=== PATIENT | male | born 1970 | race Caucasian/White ===

== ENCOUNTER 2023-10-18 22:11 | Emergency (ER) | payer OTHER, SELFPAY ==
[~2023-10-18] VITALS: Ht 160 cm; Wt 85.3 kg
[2023-10-18 22:12] VITALS: BP 160/112; TEMP 99.4; O2SAT 97
[2023-10-18] MEDS ORDERED: MIDAZOLAM INJ 2MG/2ML VIAL IV ONE (23:10)
[2023-10-18] MEDS: MIDAZOLAM INJ 2MG/2ML VIAL IV STA (23:30)
[2023-10-18] MEDS: fentaNYL 100 MCG/2 ML INJECTION IV ONE ×2 (23:35→23:44)
[2023-10-19] MEDS ORDERED: PERC5TAB12 PO (00:53)
[2023-10-19] MEDS ORDERED: NORV5TAB PO (00:55)
[2023-10-19 01:32] VITALS: BP 182/93
[2023-10-19] MEDS: OXYCODONE/APAP 5MG/325MG(HOME DOSE PACK) PO ONE (01:33)
[2023-10-19] MEDS: PERCOCET 5MG/325MG TAB PO ONE (02:06)
[2023-10-22] MEDS ORDERED: LISI10TA22 PO (11:25)
[2023-10-22] MEDS ORDERED: NORV5TAB PO (11:25)
[2023-10-22] MEDS ORDERED: LISI40TA4 PO (11:25)
[2023-10-22] MEDS ORDERED: FLOM0.4C39 PO (11:25)
[2023-10-22] MEDS ORDERED: PERCOCET PO (11:27)
== END 2023-10-19 02:08 | disposition home or self-care (01) ==
LOC: M ED 22:11
DX: S82.854A Nondisplaced trimalleolar fracture of right lower leg, initial encounter for closed fracture (principal); Y92.410 Unspecified street and highway as the place of occurrence of the external cause; Y93.9 Activity, unspecified; Y99.9 Unspecified external cause status; Y04.8XXA Assault by other bodily force, initial encounter; M25.512 Pain in left shoulder; I10 Essential (primary) hypertension; Z79.899 Other long term (current) drug therapy
CPT/HCPCS: 73030; 73610; 96374; 96375; 99282; J2250; J3010

== ENCOUNTER → 2023-10-22 | Outpatient (CLI) | payer SELFPAY ==
[~2023-10-22] MED LIST: FLOM0.4C39 PO; LISI10TA22 PO; LISI40TA4 PO; NORV5TAB PO; PERC5TAB12 PO; PERCOCET PO
== END ==
LOC: M RAD 13:44
PROVIDERS: ATTEND Physician Assistant
DX: S82.841A Displaced bimalleolar fracture of right lower leg, initial encounter for closed fracture (principal); W18.30XA Fall on same level, unspecified, initial encounter; Y92.009 Unspecified place in unspecified non-institutional (private) residence as the place of occurrence of the external cause

== ENCOUNTER 2023-10-23 15:03 | Inpatient (IN) | payer SELFPAY ==
[~2023-10-23] VITALS: Ht 160 cm; Wt 60.0 kg
[2023-10-23 08:00] VITALS: BP 157/98
[2023-10-23] MEDS: MULTIVITAMINS/MINERALS THERAP 1 TAB PO SCH (09:00)
[2023-10-23 16:06] LABS: BLOOD UREA NITROGEN 14 MG/DL (9-23); CALCIUM LEVEL 9.1 MG/DL (8.5-10.1); CARBON DIOXIDE LEVEL 26 MMOL/L (20-31); CHLORIDE LEVEL 104 MMOL/L (98-107); CREATININE FOR GFR 0.85 MG/DL (0.70-1.30); GLOMERULAR FILTRATION RATE > 60.0 (>56); GLUCOSE, FASTING 106 MG/DL (60-100); POTASSIUM SERUM 4.4 MMOL/L (3.5-5.1); SODIUM LEVEL 138 MMOL/L (136-145)
[2023-10-23] MEDS ORDERED: CAPTOpril 6.25 MG PER 1/2 TABLET PO SCH (17:15)
[2023-10-23] MEDS ORDERED: KETOROLAC 30 MG/ML 1ML VIAL IV PRN (17:15)
[2023-10-23] MEDS ORDERED: ACETAMINOPHEN TAB 650MG DOSE (2X325MG) PO PRN (17:15)
[2023-10-23] MEDS ORDERED: MOM 30ML SUSPENSION UDC PO PRN (17:15)
[2023-10-23] MEDS: KETOROLAC 30 MG/ML 1ML VIAL IV SCH (18:02)
[2023-10-23] MEDS: CAPTOpril 12.5 MG TAB PO SCH (18:03)
[2023-10-23 18:26] LABS: HEMATOCRIT 41.8 % (42.0-52.0); HEMOGLOBIN 14.1 g/dl (13.5-17.5); MEAN CORPUSCULAR HEMOGLOBIN 31.5 pg (27.0-33.0); MEAN CORPUSCULAR HGB CONC 33.7 g/dl (32.0-36.5); MEAN CORPUSCULAR VOLUME 93.3 fl (80.0-96.0); PLATELET COUNT, AUTOMATED 253 10^3/uL (150-450); RED BLOOD COUNT 4.48 10^6/uL (4.30-6.10); WHITE BLOOD COUNT 8.1 10^3/uL (4.0-10.0)
[2023-10-23 18:34] LABS: INR 1.05; PROTHROMBIN TIME 13.3 SECONDS (12.5-14.5)
[2023-10-23 18:47] VITALS: BP 157/96; TEMP 98.6; O2SAT 98
[2023-10-23 18:52] LABS: THYROID STIMULATING HORMONE 1.823 uIU/ML (0.55-4.78)
[2023-10-23 18:53] LABS: FREE T4 1.04 NG/DL (0.89-1.76)
[2023-10-23] MEDS: FOLIC ACID 1MG TAB PO SCH (19:22)
[2023-10-23 20:00] VITALS: BP 173/87; TEMP 97.3; O2SAT 98
[2023-10-23] MEDS ORDERED: CAPTOpril 12.5 MG TAB PO SCH (21:00)
[2023-10-24] VITALS (8 sets, daily range): BP systolic 101–170; BP diastolic 58–100; TEMP 97.8–99.1; O2SAT 96–98
[2023-10-24] MEDS: TAMSULOSIN 0.4 MG CAP PO SCH (00:10)
[2023-10-24] MEDS: THIAMINE 100 MG TAB PO SCH (00:10)
[2023-10-24] MEDS: ENOXAPARIN 40MG/0.4ML SYRINGE (J1650 PER 10MG) SC SCH (09:00)
[2023-10-24] MEDS ORDERED: FLUTICASONE PROP 0.05% NASAL SPRAY 16 GM (FLONASE) NARES SCH (09:00)
[2023-10-24] MEDS: lisinopriL 40MG TAB PO SCH (09:48)
[2023-10-24] MEDS: GABAPENTIN 100 MG CAP PO SCH (09:48)
[2023-10-24] MEDS: CHLORTHALIDONE 25 MG TAB PO SCH (09:48)
[2023-10-24] MEDS: ACETAMINOPHEN 500 MG TAB PO SCH (10:03)
[2023-10-24] MEDS: IBUPROFEN 800 MG TAB PO SCH (13:17)
[2023-10-24 14:05] LABS: AMPHETAMINES LEVEL URINE NEGATIVE (NEGATIVE); BARBITURATES URINE NEGATIVE (NEGATIVE); BENZODIAZEPINES URINE NEGATIVE (NEGATIVE); CANNABINOIDS URINE NEGATIVE (NEGATIVE); COCAINE METABOLITE URINE NEGATIVE (NEGATIVE); METHADONE URINE NEGATIVE (NEGATIVE); PHENCYCLIDINE URINE NEGATIVE (NEGATIVE)
[2023-10-24 14:07] LABS: OPIATES URINE POSITIVE (NEGATIVE)
[2023-10-24] MEDS: FLUTICASONE PROP 0.05% NASAL SPRAY 16 GM (FLONASE) NARES SCH (15:33)
[2023-10-25] VITALS (10 sets, daily range): BP systolic 116–146; BP diastolic 57–85; TEMP 97.9–99.2; O2SAT 94–98
[2023-10-25] MEDS ORDERED: diphenhydrAMINE 50MG/ML VIAL IM PRN (02:40)
[2023-10-25] MEDS: diphenhydrAMINE 25MG CAP PO PRN (03:07)
[2023-10-25] MEDS ORDERED: oxyCODONE 5MG TAB PO PRN (09:25)
[2023-10-25] MEDS ORDERED: fentaNYL 100 MCG/2 ML INJECTION IV PRN (09:25)
[2023-10-25] MEDS ORDERED: ONDANSETRON 4MG 2ML VIAL IV PRN (09:25)
[2023-10-25] MEDS ORDERED: LIDOCAINE 2% 100MG/5ML SDV (FOR ANES.) As Ordered ONE (10:17)
[2023-10-25] MEDS ORDERED: MIDAZOLAM INJ 2MG/2ML VIAL As Ordered ONE (10:17)
[2023-10-25] MEDS ORDERED: fentaNYL 100 MCG/2 ML INJECTION As Ordered ONE (10:17)
[2023-10-25] MEDS ORDERED: ROCURONIUM BROMIDE 50MG/5ML VIAL As Ordered ONE (10:17)
[2023-10-25] MEDS ORDERED: propofoL 200 MG/20 ML VIAL As Ordered ONE (10:17)
[2023-10-25] MEDS ORDERED: ONDANSETRON 4MG 2ML VIAL As Ordered ONE (10:17)
[2023-10-25] MEDS: ceFAZolin 2 GM/D5W 50 ML IV BAG As Ordered ONE (10:19)
[2023-10-25] MEDS ORDERED: ePHEDrine SULFATE 25 MG/5 ML(5MG/ML) SYRINGE As Ordered ONE (10:21)
[2023-10-25] MEDS: TRANEXAMIC ACID 100 MG/ML 10ML VIAL As Ordered ONE (10:25)
[2023-10-25] MEDS ORDERED: KETOROLAC 60MG 2ML VIAL As Ordered ONE (10:36)
[2023-10-25] MEDS ORDERED: dexmedeTOMIDine (4MCG/ML)200MCG/50ML BTL (PRECEDEX) As Ordered ONE (11:38)
[2023-10-25] MEDS ORDERED: PHENYLephrine 500MCG 5ML (100MCG/ML) SYRINGE As Ordered ONE (11:55)
[2023-10-25] MEDS ORDERED: ACETAMINOPHEN 1000MG 100ML IV BAG As Ordered ONE (11:56)
[2023-10-25] MEDS: LIDOCAINE 1% SDV 30ML VIAL As Ordered ONE (12:10)
[2023-10-25] MEDS ORDERED: HYDROmorphone HCL 2MG/ML 1ML VIAL As Ordered ONE (12:24)
[2023-10-25] MEDS: HYDROMORPHONE HCL 0.5 MG/ 0.5 ML SYRINGE IV PRN (12:54)
[2023-10-25] MEDS: LR 1,000 ML IV SCH ×2 (13:43)
[2023-10-25] MEDS ORDERED: AMLO1TAB25 PO (14:39)
[2023-10-25] MEDS ORDERED: KETOROLAC 30 MG/ML 1ML VIAL IV PRN (15:40)
[2023-10-25] MEDS: ceFAZolin SOD 2 GM in IV 1 EA IV SCH (17:17)
[2023-10-25] MEDS: KETOROLAC 30 MG/ML 1ML VIAL IV SCH (20:58)
[2023-10-26] MEDS: LORazepam 2 MG TAB PO PRN (00:03)
[2023-10-26 02:00] VITALS: BP 143/76; TEMP 99.2; O2SAT 95
[2023-10-26 04:52] VITALS: BP 138/81; TEMP 99.2; O2SAT 96
[2023-10-26 08:50] VITALS: BP 134/83
[2023-10-26] MEDS ORDERED: ASPI-527 PO (10:31)
[2023-10-26] MEDS ORDERED: PERCOCET PO (10:31)
== END 2023-10-26 12:52 | disposition home or self-care (01) | DRG 313 ==
LOC: M SDC 15:03 → M ED INP 17:11 → M PCU 18:17 → M MSPAV 10-24 11:06
PROVIDERS: ADMIT Student in an Organized Health Care Education/Training Program; ATTEND Student in an Organized Health Care Education/Training Program
PROC: 0SSF04Z Reposition Right Ankle Joint with Internal Fixation Device, Open Approach (ICD-10-PCS; principal; 2023-10-25 09:00)
DX: S82.851A Displaced trimalleolar fracture of right lower leg, initial encounter for closed fracture (principal); N40.0 Benign prostatic hyperplasia without lower urinary tract symptoms; I10 Essential (primary) hypertension; I16.9 Hypertensive crisis, unspecified; Z79.899 Other long term (current) drug therapy; X58.XXXA Exposure to other specified factors, initial encounter; Y92.9 Unspecified place or not applicable; Y93.9 Activity, unspecified

== ENCOUNTER → 2023-10-27 | Outpatient (CLI) | payer SELFPAY ==
[~2023-10-27] MED LIST changes: +AMLO1TAB25 PO; +ASPI-527 PO
== END ==
LOC: M SOG 15:22
PROVIDERS: ATTEND Physician Assistant
DX: S82.841A Displaced bimalleolar fracture of right lower leg, initial encounter for closed fracture (principal); W18.30XA Fall on same level, unspecified, initial encounter; Y92.009 Unspecified place in unspecified non-institutional (private) residence as the place of occurrence of the external cause

== ENCOUNTER → 2023-11-05 | Outpatient (CLI) | payer SELFPAY | LOC: M SOG 10:29 | PROVIDERS: ATTEND Physician Assistant | DX: S82.851D Displaced trimalleolar fracture of right lower leg, subsequent encounter for closed fracture with routine healing (principal) ==

== ENCOUNTER → 2023-11-18 | Outpatient (CLI) | payer SELFPAY | LOC: M SOG 14:52 | PROVIDERS: ATTEND Physician Assistant | DX: M25.512 Pain in left shoulder (principal) ==

== ENCOUNTER → 2023-12-11 | Outpatient (CLI) | payer MEDICAID | LOC: M PLAIMG 12:11 | PROVIDERS: ATTEND Orthopaedic Surgery | DX: S46.012A Strain of muscle(s) and tendon(s) of the rotator cuff of left shoulder, initial encounter (principal); Y93.9 Activity, unspecified; Y92.9 Unspecified place or not applicable ==

== ENCOUNTER → 2023-12-16 | Outpatient (CLI) | payer MEDICAID | LOC: M SOG 08:02 | PROVIDERS: ATTEND Physician Assistant | DX: S82.851D Displaced trimalleolar fracture of right lower leg, subsequent encounter for closed fracture with routine healing (principal) ==